=== PATIENT | female | born 1985 | race Caucasian/White ===

== ENCOUNTER 2017-06-10 05:20 | Inpatient (IN) | payer BC ==
[2017-06-10 06:01] LABS: APPEARANCE,URINE CLOUDY; BILIRUBIN,URINE NEGATIVE (NEGATIVE); GLUCOSE, URINE NEGATIVE (NEGATIVE); KETONES,URINE NEGATIVE (NEGATIVE); LEUKOCYTE ESTERASE,URINE MODERATE (NEGATIVE); NITRITE,URINE NEGATIVE (NEGATIVE); PROTEIN,URINE 30 mg/dL (NEGATIVE); URINE SPECIFIC GRAVITY 1.015; UROBILINOGEN,URINE NEGATIVE mg/dL (<2.0)
[2017-06-10 06:05] LABS: AMNISURE (ROM) POSITIVE (NEGATIVE)
[2017-06-10] MEDS ORDERED: RINGERS SOLUTION,LACTATED 1,000 ML IV ONE (06:07)
[2017-06-10] MEDS ORDERED: RINGERS SOLUTION,LACTATED 1,000 ML IV PRN (06:07)
[2017-06-10 06:18] LABS: URINE BARBITURATES SCREEN NEGATIVE; URINE METHADONE SCREEN NEGATIVE; URINE OPIATES LOW NEGATIVE; URINE PHENCYCLIDINE SCREEN NEGATIVE
[2017-06-10 06:55] LABS: ABSOLUTE EOSINOPHILS # (AUTO) 0.2 10^3/uL (0.0-0.6); ABSOLUTE LYMPHOCYTES (AUTO) 2.2 10^3/uL (0.5-4.7); ABSOLUTE NEUT (AUTO) 9.5 10^3/uL (1.7-8.2); BASOPHILS % (AUTO) 0.3 % (0-2); EOSINOPHILS % (AUTO) 1.3 % (0-6); HEMATOCRIT 36.9 % (36.0-47.0); HEMOGLOBIN 12.5 g/dL (12.0-15.5); HGB HCT DIFFERENCE 0.6; LYMPHOCYTES % (AUTO) 17.1 % (13-45); MEAN CORPUSCULAR HEMOGLOBIN 29.7 pg (27.0-33.4); MEAN CORPUSCULAR HGB CONC 33.9 g/dL (32.0-36.0); MEAN CORPUSCULAR VOLUME 88 fl (80-97); MONOCYTES % (AUTO) 8.1 % (3-13); RED CELL DISTRIBUTION WIDTH 13.7 % (11.5-14.0); SEGMENTED NEUTROPHILS % (AUTO) 73.2 % (42-78); WHITE BLOOD COUNT 12.9 10^3/uL (4.0-10.5)
[2017-06-10] MEDS ORDERED: BUTALB/ACETAMINOPHEN/CAFFEINE 1 TAB EACH PO ONE (07:10)
[2017-06-10] MEDS ORDERED: OXYTOCIN/NORMAL SALINE 20 UNIT/1,000 ML RTUINJ ONE (08:01)
[2017-06-10] MEDS ORDERED: NALBUPHINE HCL INJ 10 MG/1 ML AMPULE ONE (08:13)
--- NOTE | 2017-06-10 09:57 | L&D Progress Notes ---
PROGRESS NOTES Datetime Report Generated by CPN: 06/10/2017 09:57 PROGRESS NOTE Impression: Rupture of Membranes Plan: Continue Present Management Vital Signs : Reviewed; Within Normal Limits Comment: Cat 1 strip, minimal variability from Nubain, hsb at BS VAGINAL EXAM Dilatation: 2 Effacement: 80 Station: -2 MEMBRANES Pooling: Positive Membranes: Ruptured Amniotic Fluid Color: Clear FETUS A Decelerations: None : 38.4 Estimated Weight (gm): 3400 Presentation: Vertex SIGNATURE SIGNATURE: [id number] Assignment: Jesenia Stinson MD Signature: with User ID: [email or web address] : with User ID: [email or web address]
[2017-06-10] MEDS ORDERED: LIDOCAINE 1% INJ-PF (10 MG/ML) 30 ML SDV ONE (11:47)
[2017-06-10] MEDS ORDERED: MISOPROSTOL 0.2 MG TABLET ONE (11:47)
--- NOTE | 2017-06-10 12:05 | L&D Progress Notes ---
PROGRESS NOTES Datetime Report Generated by CPN: 06/10/2017 12:05 PROGRESS NOTE Impression: Normal Progression of Labor Procedures: Scalp Electrode; Sterile Vag Exam Plan: Continue Present Management Plan Other: Pit off Vital Signs : Reviewed; Within Normal Limits Comment: comfortable with epidural, shaking, VE, ant lip, thin, baby is asynclitic with molding, FSE placed, + scalp stim, unable to place IUPC pt and hsb informed of POC, Cat 1 strip, Pitocin off FETUS A FHR - Baseline: 120 FETUS C SIGNATURE: [id number] Assignment: Jesenia Stinson MD Signature: with User ID: [email or web address] : with User ID: [email or web address]
--- NOTE | 2017-06-10 13:28 | L&D Progress Notes ---
PROGRESS NOTES Datetime Report Generated by CPN: 06/10/2017 13:27 PROGRESS NOTE Procedures: Sterile Vag Exam Plan: Continue Present Management Vital Signs : Reviewed; Within Normal Limits Comment: VE= completer, vtx, 0, Cat 1 strip, + accels, repositioned, restart Pitocin @ 2 mu, start pushing after 30 minutes FETUS C SIGNATURE: [id number] Assignment: Jesenia Stinson MD Signature: with User ID: [email or web address] : with User ID: [email or web address]
[2017-06-10] MEDS ORDERED: MEASLES,MUMPS&RUBELLA VACC/PF 0.5 ML VIAL SUBCUT PRN (15:52)
[2017-06-10] MEDS ORDERED: PROMETHAZINE HCL 25 MG TABLET PO PRN (15:52)
[2017-06-10] MEDS ORDERED: DIPHENHYDRAMINE HCL 25 MG CAPSULE PO PRN (15:52)
[2017-06-10] MEDS ORDERED: DIPH/PERTUSS(ACELL)/TETANUS VAC/PF 0.5 ML SYR (>=10YO) IM PRN (15:52)
[2017-06-10] MEDS ORDERED: OXYTOCIN/NORMAL SALINE 1,000 ML IV PRN (15:52)
[2017-06-10] MEDS ORDERED: PROMETHAZINE HCL INJ 25 MG/1 ML VIAL IV PRN (15:52)
[2017-06-10] MEDS ORDERED: ACETAMINOPHEN 650 MG SUPP.RECT PR PRN (15:52)
[2017-06-10] MEDS ORDERED: GLYCERIN/WITCH HAZEL LEAF 1 EACH MED..PAD TP PRN (15:52)
[2017-06-10] MEDS ORDERED: PSEUDOEPHEDRINE HCL 30 MG TABLET PO PRN (15:52)
[2017-06-10] MEDS ORDERED: NA PHOS,M-B/NA PHOS,DI-BA (ADULT) 133 ML ENEMA PR PRN (15:52)
[2017-06-10] MEDS ORDERED: DIBUCAINE 1% OINTMENT 28 GM TP PRN (15:52)
[2017-06-10] MEDS ORDERED: MISOPROSTOL 0.2 MG TABLET PR ONE (15:52)
[2017-06-10] MEDS ORDERED: BENZOCAINE/MENTHOL AEROSOL SPRAY 56 ML TOP PRN (15:52)
[2017-06-10] MEDS ORDERED: PROMETHAZINE HCL 25 MG SUPP.RECT PR PRN (15:52)
[2017-06-10] MEDS ORDERED: ACETAMINOPHEN WITH CODEINE #3 TABLET PO PRN ×2 (15:52)
[2017-06-10] MEDS ORDERED: MAGNESIUM HYDROXIDE SUSP 30 ML UDCUP PO PRN (15:52)
[2017-06-10 15:56] LABS: ARTERIAL BLOOD BASE EXCESS -9.2 mmol/L
[2017-06-10] MEDS ORDERED: FENTANYL CITRATE INJ/PF 100 MCG/2 ML AMPUL ONE (16:00)
[2017-06-10] MEDS ORDERED: BUPIVACAINE HCL 0.25 % INJ/PF (2.5 MG/1 ML) 30 ML VIAL ONE (16:01)
[2017-06-10] MEDS ORDERED: FENTANYL/BUPIVACAINE/NS/PF 200 MCG/100 ML RTUINJ EPI ONE (16:01)
--- NOTE | 2017-06-10 17:01 | Delivery Summary ---
Del Sum A-C Datetime Report Generated by CPN: 06/10/2017 17:01 DELIVERY PERSONNEL DELIVERY PERSONNEL: [id number] Delivery Doctor:: Daisy Campbell CNM Labor and Delivery Nurse:: Raina Zurita RN Nursery Nurse:: Jasmina Loyd RN MATERNAL INFORMATION Delivery Anesthesia: Epidural Medications After Delivery: Pitocin Bolus-Please Comment Meds After Delivery Comment: Pitocin 20 units in 1 L NS bolusing per order Estimated Blood Loss (ml): 300 Maternal Complications: None Provider Comments: viable male from OA to JORGITO, compound hand and loose nuchal cord, placed on mothers abd, cord clamped and cut after 2 minutes, cord gas and and cord blood to lab, spont delivery of grossly small placenta, 3 VC, with calcifications. Cytotec 600 mcg, IV Pitocin and massage. Laceration repaired with 2-0 chromic without difficulty, good hemostasis Baby and mom remains in recovery in stable condition, (Annotations: Data stored by CPN on behalf of user) LABOR SUMMARY EDC: 06/20/2017 00:00 No. Babies in Womb: 1 Attempted: No Labor Anesthesia: Epidural LABOR INFORMATION Reason for Induction: Premature Rupture of Membranes Onset of Labor: 06/10/2017 04:30 Complete Dilatation: 06/10/2017 13:22 Oxytocin: Induction Group B Beta Strep: Negative Antibiotics # of Doses: 0 Antibiotics Time of Last Dose: n/a Name of Antibiotic Given: n/a Steroids Given: None Reason Steroids Not Administered: Not Applicable MEMBRANES Membranes Rupture Method: Spontaneous Rupture of Membranes: 06/10/2017 04:30 Length of Rupture (hr): 10.83 Amniotic Fluid Color: Clear Amniotic Fluid Amount: Moderate Amniotic Fluid Odor: Normal STAGES OF LABOR Stage 1 hr: 8 Stage 1 min: 52 Stage 2 hr: 1 Stage 2 min: 58 Stage 3 hr: 0 Stage 3 min: 5 Total Time in Labor hr: 10 Total Time in Labor min: 55 VAGINAL DELIVERY Episiotomy: None Laceration Extension: First Degree Laceration Type: Perineal Other Laceration: midline Laceration Repair: Yes Laceration Repair Note: lac repaired withour difficulty using 2-0 chromic Sponge Count Correct: Yes Sharps Count Correct: Yes CSECTION DELIVERY Primary Indication: N/A Secondary Indication: N/A CSection Incidence: N/A Labor: N/A Elective: N/A CSection Incision: N/A BABY A INFORMATION Infant Delivery Date/Time: 06/10/2017 15:20 Method of Delivery: Vaginal Born in Route : No : N/A Forceps: N/A Vacuum Extraction: N/A Shoulder Dystocia : No PRESENTATION/POSITION BABY A Presentation: Cephalic Cephalic Presentation: Vertex Vertex Position: OA to JORGITO Breech Presentation: N/A PLACENTA INFORMATION BABY A Placenta Delivery Time : 06/10/2017 15:25 Placenta Method of Delivery: Spontaneous Placenta Status: Delivered SCORES BABY A Heart Rate 1 min: >100 bpm Resp Effort 1 min: Good Cry Reflex Irritability 1 min: Cough or Sneeze or Pulls Away Muscle Tone 1 min: Active Motion Color 1 min: Blue/Pale Resuscitation Effort 1 min: Tactile Stimulation SCORE 1 MIN: 8 Heart Rate 5 min: >100 bpm Resp Effort 5 min: Good Cry Reflex Irritability 5 min: Cough or Sneeze or Pulls Away Muscle Tone 5 min: Active Motion Color 5 min: Body [place], Extremities Blue Resuscitation Effort 5 min: Tactile Stimulation SCORE 5 MIN: 9 INFANT INFORMATION BABY A Gestational Age at Delivery: 38.4 Gestational Status: Early Term- 37- 38.6 Weeks Outcome : Liveborn Condition : Stable Sex: Male IDENTIFICATION BABY A Verification Date/Time: 06/10/2017 15:31 ID Band Number: [id number] Mother's Name Verified: Yes RN Verifying Infant: CZeeshan espinosa, RN / Jerardo Mo RN WEIGHT/LENGTH BABY A Birthweight (gm): 2480 Infant Weight (lb): 5 Weight (oz): 7 Infant Length (in): 19.00 Length (cm): 48.26 CORD INFORMATION BABY A No. Cord Vessels: 3 Nuchal Cord : Around Neck x1, Loose Nuchal Cord- Other: compound right hand Cord Blood Taken: Yes-For Eval (Mom's Blood Type - or O+) Suction: Mouth; Nose ASSESSMENT BABY A Infant Complications: Multiple Late Decels; Multiple Variable Decels Physical Findings at Delivery: Caput Succedaneum Infant Respirations: Appears Normal Skin to Skin: Yes Skin to Skin Time (min): 60 Irs Agent/ALS Called : No Infant Care By: Adolfo Loyd RN Transferred To: Remains with Mother BABY B INFORMATION : N/A
--- NOTE | 2017-06-10 17:40 | Admission Physical ---
Datetime Report Generated by CPN: 06/10/2017 17:40 CURRENT ADMISSION Chief Complaint: Uterine Contractions; Suspected Ruptured Membranes Admit Plan: Admit to Unit; Initiate Labor Augmentation Protocol ALLERGIES Medication Allergies: Yes Medication Allergies: Penicillins (06/10/2017) Latex: No Latex Allergies Food Allergies: None Environmental Allergies: seasonal OBSTETRICAL HISTORY EDC: 06/20/2017 00:00 : 1 Para: 0 Term: 0 : 0 SAB: 0 IAB: 0 Ectopic: 0 Livin Cesareans: 0 VBACs: 0 Multiple Births: 0 Gestational Diabetes: No Rh Sensitization: No Incompetent Cervix: No JUVE: No Infertility: No ART Treatment: No Uterine Anomaly: No IUGR: No Hx Previous C/S: No Macrosomia: No Hx Loss/Stillborn: No PIH: No Hx : No Placenta Previa/Abruption: No Depression/PP Depression: No PTL/PROM: No Post Hemorrhage: No Current Procedures: Ultrasound; NST Obstetrical History Comments: G1- current SEE RECORDS Alcohol: No Marijuana : No Cocaine: No Other Illicit Drugs: No Cigarettes: Never Smoker. [id number] MEDICAL HISTORY Diabetes: No Blood Transfusion: No Pulmonary Disease (Asthma, TB): No Breast Disease: No Hypertension: No Computing Systems Mechanic Surgery: No Heart Disease: No Hosp/Surgery: Yes Autoimmune Disorder: No Anesthetic Complications: No Kidney Disease: No Abnormal Pap Smear: No Neuro/Epilepsy: No Psychiatric Disorders: No Other Medical Diseases: No Hepatitis/Liver Disease: No Significant Family History: No Varicosities/Phlebitis: No Trauma/Violence : No Thyroid Dysfunction: Yes Medical History Comments: hypothyroid, anemia surgery- appy, L shoulder INFECTIOUS HISTORY Gonorrhea: No Genital Herpes: No Chlamydia: Yes Tuberculosis: No Syphilis: No Hepatitis: No HIV/AIDS Exposure: No Rash or Viral Illness: No HPV: Yes PHYSICAL EXAM General: Normal HEENT: Normal Neurologic: Normal Thyroid: Normal Heart: Normal Lungs: Normal Breast: Normal Back: Normal Abdomen: Normal Genitourinary Exam: Normal Extremities: Normal DTRs: Normal Pelvic Type: Adequate Vital Signs: Reviewed VAGINAL EXAM Dilatation: 2 Effacement: 80 Station: -2 MEMBRANES Pooling: Positive Membranes: Ruptured Amniotic Fluid Color: Clear FETUS A EGA: 38.4 Monitoring: External US FHR- Baseline: 150 Variability: Moderate 6-25bpm Accelerations: 15X15 Decelerations: None FHR Category: Category I Estimated Weight (gm): 3400 Presentation: Vertex PLANS FOR LABOR AND DELIVERY Labor and Delivery: None Pain Management: Medications; Epidural Feeding Preference: Breast Benefit of Breast Feed Discussed: Yes Circumcision: Yes INFORMED CONSENT Signature: with User ID: Anna Marie
[2017-06-10] MEDS: DOCUSATE SODIUM 100 MG CAPSULE PO SCH (18:13)
[2017-06-10] MEDS: FERROUS SULFATE 325 MG TABLET PO SCH (18:13)
[2017-06-10] MEDS: FAMOTIDINE 20 MG TABLET PO SCH (21:45)
[2017-06-10] MEDS: IBUPROFEN 800 MG TABLET PO SCH (21:46)
[2017-06-11] MEDS: IBUPROFEN 800 MG TABLET PO SCH ×3 (05:21→21:42)
[2017-06-11 06:58] LABS: HEMATOCRIT 31.3 % (36.0-47.0); HEMOGLOBIN 10.6 g/dL (12.0-15.5); HGB HCT DIFFERENCE 0.5; MEAN CORPUSCULAR HEMOGLOBIN 29.6 pg (27.0-33.4); MEAN CORPUSCULAR HGB CONC 33.9 g/dL (32.0-36.0); MEAN CORPUSCULAR VOLUME 87 fl (80-97); RED BLOOD COUNT 3.59 10^6/uL (3.72-5.28); RED CELL DISTRIBUTION WIDTH 13.6 % (11.5-14.0)
[2017-06-11] MEDS: DOCUSATE SODIUM 100 MG CAPSULE PO SCH ×2 (09:30→18:10)
[2017-06-11] MEDS: FAMOTIDINE 20 MG TABLET PO SCH ×2 (09:30→21:43)
[2017-06-11] MEDS: SENNOSIDES/DOCUSATE 8.6-50 MG 1 EACH TABLET PO SCH (09:31)
[2017-06-11] MEDS: PRENATAL VITAMIN W-O CA NO5/FE FUMARATE/FA CAPSULE PO SCH (09:31)
[2017-06-11] MEDS: FERROUS SULFATE 325 MG TABLET PO SCH ×2 (09:31→18:09)
--- NOTE | 2017-06-11 11:38 | PDOC PROGRESS REPORT ---
Subjective-OB Subjective: Post Delivery Day: 32 year old. Denies any needs at this time. Pt doing well, no concerns. She reports light bleeding, regular diet and voiding without difficulty. Physical Exam (OB) Vital Signs: Temp Pulse Resp BP Pulse Ox 98.5 F 77 18 123/59 L 99 06/11/17 07:51 06/11/17 07:51 06/11/17 07:51 06/11/17 07:51 06/11/17 07:51 Intake & Output 06/10/17 06/11/17 06/12/17 06:59 06:59 06:59 Weight 91.35 kg - PIH/Pre-Eclampsia DTR's: 2 + Clonus: Negative Headache: Absent Epigastric Pain: No Visual Changes: No - Lochia Lochia Amount: Scant < 10 ml Lochia Color: Rubra/Red - Abdomen Description: Soft, Round Hernia Present: No Fundal Description: Firm, Midline Fundal Height: u/u - u/2 Objective-Diagnostic Laboratory: 06/11/17 06:34 06/10/17 06/11/17 06/11/17 15:20 06:34 06:34 WBC 14.0 H RBC 3.59 L Hgb 10.6 L Hct 31.3 L MCV 87 MCH 29.6 MCHC 33.9 RDW 13.6 Plt Count 213 Carbonic Acid 1.38 H HCO3/H2CO3 Ratio 13:1 ABG pH 7.22 L ABG pCO2 46.0 H ABG pO2 26.3 L* ABG HCO3 18.4 L ABG O2 Saturation 38.0 L ABG Base Excess -9.2 FiO2 CORD BLOOD Blood Type O NEGATIVE Assessment and Plan(PN) - Assessment and Plan (1) Vaginal delivery Is this a current diagnosis for this admission?: Yes - Time Spent with Patient Time with patient: Less than 15 minutes Medications reviewed and adjusted accordingly: Yes - Disposition Anticipated Discharge: Home Within: within 24 hours
[2017-06-12] MEDS: IBUPROFEN 800 MG TABLET PO SCH ×2 (05:37→13:55)
--- NOTE | 2017-06-12 09:16 | PDOC DISCHARGE SUMMARY ---
Final Diagnosis Discharge Date: 06/12/17 - Final Diagnosis (1) Vaginal delivery Is this a current diagnosis for this admission?: Yes Discharge Data - Discharge Medication Home Medications: Cetirizine HCl [Zyrtec 10 mg Tablet] 1 tab PO DAILY 06/10/17 Ergocalciferol (Vitamin D2) [Vitamin D2] 1 tab PO DAILY 06/10/17 Ferrous Sulfate [Iron] 325 mg PO DAILY 06/10/17 Levothyroxine Sodium [Synthroid] 125 mcg PO DAILY 06/10/17 Vit/Iron Fumarate/FA [ Tablet] 1 each PO DAILY 06/10/17 Reason(s) for Admission: Onset of Labor, PROM Procedures: NST Intrapartum Procedure(s): Spontaneous Vaginal Delivery Complication(s): Laceration-Perineal Laceration-Degree: 1st - Diagnosis Test Laboratory: Temp Pulse Resp BP Pulse Ox 97.8 F 62 17 126/79 H 100 06/12/17 07:34 06/12/17 07:34 06/12/17 07:34 06/12/17 07:34 06/12/17 07:34 06/10/17 06/10/17 06/11/17 05:31 06:18 06:34 RBC 4.20 3.59 L Hgb 12.5 10.6 L Hct 36.9 31.3 L Urine Opiates Screen NEGATIVE - Discharge information/Instructions Discharge Activity: Balance Activity w/Rest, Pelvic Rest Discharge Diet: Regular Disposition: HOME, SELF-CARE Follow up with: [facility] in: 4, Weeks
[2017-06-12] MEDS: FERROUS SULFATE 325 MG TABLET PO SCH ×2 (09:59→17:31)
[2017-06-12] MEDS: FAMOTIDINE 20 MG TABLET PO SCH (09:59)
[2017-06-12] MEDS: PRENATAL VITAMIN W-O CA NO5/FE FUMARATE/FA CAPSULE PO SCH (09:59)
[2017-06-12] MEDS: SENNOSIDES/DOCUSATE 8.6-50 MG 1 EACH TABLET PO SCH (09:59)
[2017-06-12] MEDS: DOCUSATE SODIUM 100 MG CAPSULE PO SCH ×2 (09:59→17:31)
[2017-06-12 12:01] VITALS: BP 134/71
== END 2017-06-12 19:37 | disposition home or self-care (01) | DRG 775 ==
LOC: LC 05:20 → LR 06:09 → 2S 17:38
PROVIDERS: ADMIT Student in an Organized Health Care Education/Training Program; ATTEND Student in an Organized Health Care Education/Training Program
PROC: 10E0XZZ Delivery of Products of Conception, External Approach (ICD-10-PCS; principal; 2017-06-10)
PROC: 0HQ9XZZ Repair Perineum Skin, External Approach (ICD-10-PCS; 2017-06-10)
PROC: 4A1HXCZ Monitoring of Products of Conception, Cardiac Rate, External Approach (ICD-10-PCS; 2017-06-10)
PROC: 3E0234Z Introduction of Serum, Toxoid and Vaccine into Muscle, Percutaneous Approach (ICD-10-PCS; 2017-06-11)
PROC: 3E0234Z Introduction of Serum, Toxoid and Vaccine into Muscle, Percutaneous Approach (ICD-10-PCS; 2017-06-12)
DX: O64.5XX0 Obstructed labor due to compound presentation, not applicable or unspecified (principal); O69.81X0 Labor and delivery complicated by cord around neck, without compression, not applicable or unspecified; O70.0 First degree perineal laceration during delivery; O76 Abnormality in fetal heart rate and rhythm complicating labor and delivery; O26.893 Other specified pregnancy related conditions, third trimester; O42.92 Full-term premature rupture of membranes, unspecified as to length of time between rupture and onset of labor; O99.284 Endocrine, nutritional and metabolic diseases complicating childbirth; E03.9 Hypothyroidism, unspecified; O99.02 Anemia complicating childbirth; D64.9 Anemia, unspecified; Z37.0 Single live birth; Z3A.38 38 weeks gestation of pregnancy; Z67.41 Type O blood, Rh negative; Z23 Encounter for immunization; Z88.0 Allergy status to penicillin
CPT/HCPCS: 36415; 80307; 81005; 82803; 84112; 85025; 85027; 85461; 86592; 86850; 86870; 86900; 86901; 88307; 90715; J2300; J2590; J2790; J3010; J3490